=== PATIENT | female | born 1995 ===

== ENCOUNTER 2025-10-16 09:56 | Outpatient (CLI) | payer OTHER | END 2025-10-16 09:59 | disposition home or self-care (01) | LOC: SONOGRAMA 09:56 | PROVIDERS: ATTEND Obstetrics & Gynecology | DX: R10.20 Pelvic and perineal pain unspecified side (principal); N64.4 Mastodynia; N63 Unspecified lump in breast; Z12.31 Encounter for screening mammogram for malignant neoplasm of breast ==